=== PATIENT | female | born 1950 | race Caucasian/White ===

== ENCOUNTER 2022-05-15 17:12 | Emergency (ER) | payer OTHER ==
[~2022-05-15] VITALS: Ht 162.6 cm; Wt 48.1 kg
[2022-05-15 22:28] VITALS: BP 138/62
== END 2022-05-16 01:19 | disposition home or self-care (01) ==
LOC: ER 17:12
DX: M54.32 Sciatica, left side (principal); Z88.0 Allergy status to penicillin; Z88.1 Allergy status to other antibiotic agents
CPT/HCPCS: 73502